=== PATIENT | male | born 1995 | race Two or more races ===

== ENCOUNTER 2017-03-04 06:30 | Emergency (ER) | payer BC, MEDICAID ==
[~2017-03-04] VITALS: Ht 172.7 cm; Wt 94.3 kg
[2017-03-04 06:40] VITALS: BP 143/81
== END 2017-03-04 07:34 | disposition home or self-care (01) ==
LOC: ER 06:30
DX: K05.10 Chronic gingivitis, plaque induced (principal)

== ENCOUNTER 2025-06-12 20:15 | Inpatient (IN) | payer MEDICAID ==
[~2025-06-12] VITALS: Ht 172.7 cm; Wt 107.0 kg
--- NOTE | 2025-06-12 20:59 | ED.PDOC ---
Musculoskeletal HPI Comments 30-year-old male presents to the ED for chief complaint of right sided arm swelling associated with some tenderness. 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 Patient usually injects Mondays and weekly however states his last injection was 5 days ago. He did not inject 3 days ago as he noticed that the swelling of his was abnormal up to him. He reports the pain is more of a pinching sensation to the injection sites. Past medical history: Denies Past surgical history: Right clavicle and left leg. Allergies: None known allergies. bull: RUE PAIN SWELLING tachy, nv intact. HPI: Poor Historian. REVIEW OF SYSTEMS: CONSTITUTIONAL: Denies acute: fever, diaphoresis, chills, generalized weakness. HEAD: Denies acute: headache, photophobia Eyes: Denies acute: Double vision, vision loss, eye pain, eye discharge. EARS: Denies acute: tinnitus, hearing loss, ear discharge, ear pain, THROAT: Denies acute: sore throat, swelling, difficulty swallowing , pain with swallowing, change in voice. NECK: Denies acute: neck pain, neck swelling, stiff neck. HEART: Denies acute : chest pain, palpitations, LUNGS: Denies acute: SOB, wheezing, cough, hemoptysis ABDOMEN: Denies acute: abdominal pain, Nausea, Vomiting, diarrhea, melena , hematemesis, hematochezia SKIN: Denies acute: rash, redness, lesions, itchiness. EXTREMITIES: Denies acute: calf pain, numbness, tingling, weakness, Denies acute: Low back pain. Neuro: Denies acute: focal neurological deficit, motor or sensory focal neurological deficit, tremors, seizure like activity, confusion, dizziness, change in mental status, loss of bowel or bladder function, cauda equina like symptoms. : Denies acute: dysuria, hematuria, flank pain, increase in urinary frequency. PSYCH: Denies acute: hallucination, suicidal ideation, homicidal ideation. PHYSICAL EXAM: General: ---mild-----acute distress, awake and alert. Head: normocephalic, atraumatic. No raccoon's eyes, no ruiz sign. Neck: supple, trachea is midline, no swelling. Throat: Normal phonation. Eyes:, no erythema, no purulent discharge, no proptosis, no icterus. Heart: regular tachy, no significant murmur appreciated. Lungs: no apparent respiratory distress, Able to speak in full sentences. No wheezing, no rhonchi, no crackles. No stridors Clear to auscultation bilaterally. Abdomen: non tender to palpation, non distended, soft, no guarding, no rebound, + bowel sounds. Neuro: Awake, Alert, oriented to name, self, situation, follows commands GCS=15. Speech is normal. Skin: no petechia, no purpura, no cyanosis, non-pale, not jaundice. Lower extremities: --no - Pitting edema no deformity, no focal swelling, no calf TTP. Makes eye contact. moves all four extremities. Face: no apparent facial droop. She area of complaint: Right upper extremity: This is neurovascularly intact in the affected extremity. Pedal pulses palpable. Sensory and motor are present. Evaluation of the area of complaint is where he injected himself in the triceps there is some noted swelling and some generalized erythema but no concern for compartment syndrome yet. ED COURSE: DISCLAIMER: This medical document was created using an electronic medical record system with voice recognition software and computerized dictation system. Although this document has been carefully reviewed, there might still be some phonetic and typographical errors. Occasional wrong-word or "sound-alike" substitutions may have occurred due to the inherent limitations of voice recognition software. These areas are purely typographical due to imperfections of the software programs and do not reflect any compromise in the patient's medical care. Please read the chart carefully and recognize, using context, where these substitutions have occurred. Chief Complaint: Upper Extremity Time Seen by MD: 20:46 Primary Care Provider: NONE Reviewed Notes: Medications, Allergies Allergies: Coded Allergies: NO KNOWN ALLERGIES (Unverified , 03/04/17) Information Source: Patient Mode of Arrival: Ambulatory Location: Right Extremity Location: Arm Was a procedure done? Was a procedure done?: No Differential Diagnosis EXT Differential Diagnosis: Deep Vein Thrombosis, Compartment Syndrome, Sprain, Gout X-Ray, Labs, Meds, VS Vital Signs Date Time Temp Pulse Resp B/P (MAP) Pulse Ox O2 Delivery O2 Flow Rate FiO2 06/13/25 00:49 98.6 54 18 135/91 (106) 100 98.6 06/12/25 22:05 99.0 77 18 120/61 (80) 98 99.0 06/12/25 21:09 99.1 100 19 166/60 (95) 98 99.1 06/12/25 21:09 100 19 98 Room Air* 0 21 06/12/25 20:20 99.1 100 19 166/60 98 99.1 Lab Test 06/12/25 22:25 06/12/25 20:50 Range/Units Urine Color Light-yellow Yellow Urine Clarity Clear Clear Urine pH 6.5 5.0-9.0 Urine Specific [place] 1.042 H 1.001-1.035 Urine Protein Trace H Negative Urine Ketones Negative Negative Urine Blood Negative Negative /uL Urine Nitrite Negative Negative Urine Bilirubin Negative Negative Urine Urobilinogen Normal Negative mg/dL Urine Leukocyte Esterase Negative Negative /uL Urine RBC 1 0 - 3 /hpf Urine Microscopic WBC 1 0-3 /HPF Urine Squamous Epithelial Cells None seen <5 /hpf Urine Bacteria None seen None Seen /hpf Urine Glucose Normal Normal mg/dL White Blood Count 8.0 4.4-10.8 10^3/uL Red Blood Count 4.81 4.5-5.90 10^6/uL Hemoglobin 14.2 13.5-17.5 g/dL Hematocrit 42.2 41.0-53.0 % Mean Corpuscular Volume 87.7 80.0-100.0 fL Mean Corpuscular Hemoglobin 29.6 28.0-32.0 pg Mean Corpuscular Hemoglobin Concent 33.7 32.0-36.0 g/dL Red Cell Distribution Width 14.8 H 11.8-14.3 % Platelet Count 527 H 140-450 10^3/uL Mean Platelet Volume 7.5 6.9-10.8 fL Neutrophils (%) (Auto) 73.7 37.0-80.0 % Lymphocytes (%) (Auto) 17.1 10.0-50.0 % Monocytes (%) (Auto) 7.8 0.0-12.0 % Eosinophils (%) (Auto) 0.6 0.0-7.0 % Basophils (%) (Auto) 0.8 0.0-2.0 % Neutrophils # (Auto) 5.9 1.6-8.6 10 ^3/uL Lymphocytes # (Auto) 1.4 0.4-5.4 10 ^3/uL Monocytes # (Auto) 0.6 0-1.3 10 ^3/uL Eosinophils # (Auto) 0.1 0-0.8 10 ^3/uL Basophils # (Auto) 0.1 0-0.2 10 ^3/uL Nucleated Red Blood Cells 0.1 % Sodium Level 141 136-145 mmol/L Potassium Level 4.3 3.5-5.1 mmol/L Chloride Level 106 98-107 mmol/L Carbon Dioxide Level 28 20-31 mmol/L Anion Gap 7 5-15 Blood Urea Nitrogen 10 9-23 mg/dL Creatinine 1.96 H 0.700-1.30 mg/dL Glomerular Filtration Rate Calc 46 >90 mL/min BUN/Creatinine Ratio 5.1 L 10.0-20.0 Serum Glucose 72 L 74-106 mg/dL Lactic Acid Level 1.2 0.4-2.0 mmol/L Calcium Level 9.0 8.7-10.4 mg/dL Magnesium Level 1.8 1.6-2.6 mg/dL Total Bilirubin 0.5 0.2-1.0 mg/dL Aspartate Amino Transferase (AST) 76 H 13-40 U/L Alanine Aminotransferase (ALT) 47 H 7-40 U/L Alkaline Phosphatase 52 46-116 U/L C-Reactive Protein High Sensitivity 1.33 H <1.0 mg/dL Total Protein 6.8 5.7-8.2 g/dL Albumin 4.1 3.2-4.8 g/dL Current Medications Medications (Trade) Dose Ordered Sig/[place] Route Start Time Stop Time Status Last Admin Clindamycin Phosphate 50 ml @ 50 mls/hr ONCE ONCE IV 06/12/25 21:30 06/12/25 22:29 DC 06/12/25 22:08 Time of 1ST Reevaluation: 20:55 Reevaluation 1ST: Unchanged Patient Education/Counseling: Diagnosis, Treatment Family Education/Counseling: No Family Present Departure 1 Departure Time of Disposition: 01:24 Impression: Primary Impression: Cellulitis of right upper extremity Disposition: ADMITTED INPATIENT Admit to: Tele Condition: Guarded Discharged With: Self Critical Care Note Critical Care Time?: No I personally scribed for LILLY SEVILLA DO ([email or web address]) on 06/12/25 at 20:59. Electronically submitted by Summer Becerra ([facility]). LILLY SEVILLA DO Jun 12, 2025 20:59
[2025-06-12 21:09] VITALS: PULSE 100; RESP 19; O2SAT 98
[2025-06-12 21:18] LABS: Mean Corpuscular Volume 87.7 fL (80.0-100.0)
[2025-06-12 21:20] LABS: Hematocrit 42.2 % (41.0-53.0); Hemoglobin 14.2 g/dL (13.5-17.5); Mean Corpuscular Hemoglobin 29.6 pg (28.0-32.0); Nucleated Red Blood Cells % 0.1 %
[2025-06-12 21:33] LABS: Albumin 4.1 g/dL (3.2-4.8); Alkaline Phosphatase 52 U/L (46-116); Anion Gap 7 (5-15); BUN/Creatinine Ratio 5.1 (10.0-20.0); Bilirubin, Total 0.5 mg/dL (0.2-1.0); Blood Urea Nitrogen 10 mg/dL (9-23); Calcium 9.0 mg/dL (8.7-10.4); Carbon Dioxide 28 mmol/L (20-31); Chloride 106 mmol/L (98-107); Magnesium 1.8 mg/dL (1.6-2.6); Potassium 4.3 mmol/L (3.5-5.1); Sodium 141 mmol/L (136-145); Total Protein 6.8 g/dL (5.7-8.2)
[2025-06-12 21:45] LABS: Alanine Aminotransferase 47 U/L (7-40); Glucose 72 mg/dL (74-106)
[2025-06-12] MEDS: CLINDAMYCIN 600MG IV 50 ML IV ONE (22:08)
[2025-06-12] MEDS: IOHEXOL 300 MG/ML 100ML BOTTLE IJ ONE (22:11)
[2025-06-12 22:47] LABS: Urine Protein, UAD TRACE (Negative)
--- NOTE | 2025-06-12 23:26 | DVH ---
INDICATION: r arm swelling pain COMPARISON: None TECHNIQUE: CT of the right upper extremity was performed with contrast. Volume transverse images were obtained and reconstructed in multiple planes using bone and soft tissue algorithms. Radiation Dose Information: CT Dose: CTDI volume is 34.06 mGy. Dose-length product is 1613.63 mGy*cm Contrast: 100 cc Omnipaque 350. FINDINGS: Generalized soft tissue swelling throughout the right arm. No rim enhancing fluid collections. No soft tissue gas. No fracture or malalignment. No erosive bony changes. IMPRESSION: No clear cause for swelling. All CT scans at this medical facility are performed using dose modulation techniques as appropriate to a performed exam including the following: Automated exposure control was utilized; adjustment of the MA and/or KV according to patient size; and use of iterative reconstruction technique.
--- NOTE | 2025-06-13 03:08 | DVHHP2 ---
History of Present Illness History of Present Illness 30-year-old male with no known past medical history who presented with right upper extremity swelling, erythema, and pain. 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 His last injection was five days prior to presentation. Three days before admission, he noticed progressive swelling, redness, and pain at the right arm injection site, prompting him to seek medical care. He denies fever, chills, numbness, weakness, drainage, or trauma other than injections. No history of similar episodes. In the ED, he was afebrile, mil dly tachycardic initially (HR ~100) and mildly hypertensive, both of which improved without intervention. Initial labs showed elevated inflammatory markers and acute kidney injury. CT of the right upper extremity demonstrated diffuse soft tissue swelling without abscess or gas. He was admitted for IV antibiotics and IV fluids. 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, denies tobacco use, denies alcohol use, denies recreational or IV drug use, endorses non-prescribed anabolic steroid injections, lives independently ROS: Negative except as per HPI Review of Systems Allergies: Coded Allergies: NO KNOWN ALLERGIES (Unverified , 03/04/17) Medications Current Medications Medications Dose Ordered Sig/[place] Route Start Time Stop Time Status Last Admin Dose Admin Sodium Chloride 1,000 ml @ 60 mls/hr [id number] IV 06/13/25 03:15 UNV Acetaminophen 650 mg Q6HP PRN PO 06/13/25 03:15 UNV Exam Vital Signs Vital Signs Date Time Temp Pulse Resp B/P (MAP) Pulse Ox O2 Delivery O2 Flow Rate FiO2 06/13/25 00:49 98.6 54 18 135/91 (106) 100 98.6 06/12/25 21:09 Room Air* 0 21 Exam General: Awake, alert, no acute distress Vitals: Afebrile, HR ~100 improving, BP mildly elevated on admission, now stable, SpO? normal on room air HEENT: Normocephalic, atraumatic Cardiovascular: Regular rate and rhythm, no murmurs Respiratory: Clear to auscultation bilaterally Abdomen: Soft, non-tender, non-distended Extremities: Right upper arm with diffuse erythema, warmth, swelling, and tenderness over injection site, no fluctuance, no crepitus, no drainage, full range of motion preserved, distal pulses intact Neuro: Alert and oriented, no focal deficits Skin: No rash elsewhere Labs/Xrays Labs Test 06/12/25 22:25 06/12/25 20:50 Range/Units Urine Color Light-yellow Yellow Urine Clarity Clear Clear Urine pH 6.5 5.0-9.0 Urine Specific [place] 1.042 H 1.001-1.035 Urine Protein Trace H Negative Urine Ketones Negative Negative Urine Blood Negative Negative /uL Urine Nitrite Negative Negative Urine Bilirubin Negative Negative Urine Urobilinogen Normal Negative mg/dL Urine Leukocyte Esterase Negative Negative /uL Urine RBC 1 0 - 3 /hpf Urine Microscopic WBC 1 0-3 /HPF Urine Squamous Epithelial Cells None seen <5 /hpf Urine Bacteria None seen None Seen /hpf Urine Glucose Normal Normal mg/dL White Blood Count 8.0 4.4-10.8 10^3/uL Red Blood Count 4.81 4.5-5.90 10^6/uL Hemoglobin 14.2 13.5-17.5 g/dL Hematocrit 42.2 41.0-53.0 % Mean Corpuscular Volume 87.7 80.0-100.0 fL Mean Corpuscular Hemoglobin 29.6 28.0-32.0 pg Mean Corpuscular Hemoglobin Concent 33.7 32.0-36.0 g/dL Red Cell Distribution Width 14.8 H 11.8-14.3 % Platelet Count 527 H 140-450 10^3/uL Mean Platelet Volume 7.5 6.9-10.8 fL Neutrophils (%) (Auto) 73.7 37.0-80.0 % Lymphocytes (%) (Auto) 17.1 10.0-50.0 % Monocytes (%) (Auto) 7.8 0.0-12.0 % Eosinophils (%) (Auto) 0.6 0.0-7.0 % Basophils (%) (Auto) 0.8 0.0-2.0 % Neutrophils # (Auto) 5.9 1.6-8.6 10 ^3/uL Lymphocytes # (Auto) 1.4 0.4-5.4 10 ^3/uL Monocytes # (Auto) 0.6 0-1.3 10 ^3/uL Eosinophils # (Auto) 0.1 0-0.8 10 ^3/uL Basophils # (Auto) 0.1 0-0.2 10 ^3/uL Nucleated Red Blood Cells 0.1 % Sodium Level 141 136-145 mmol/L Potassium Level 4.3 3.5-5.1 mmol/L Chloride Level 106 98-107 mmol/L Carbon Dioxide Level 28 20-31 mmol/L Anion Gap 7 5-15 Blood Urea Nitrogen 10 9-23 mg/dL Creatinine 1.96 H 0.700-1.30 mg/dL Glomerular Filtration Rate Calc 46 >90 mL/min BUN/Creatinine Ratio 5.1 L 10.0-20.0 Serum Glucose 72 L 74-106 mg/dL Lactic Acid Level 1.2 0.4-2.0 mmol/L Calcium Level 9.0 8.7-10.4 mg/dL Magnesium Level 1.8 1.6-2.6 mg/dL Total Bilirubin 0.5 0.2-1.0 mg/dL Aspartate Amino Transferase (AST) 76 H 13-40 U/L Alanine Aminotransferase (ALT) 47 H 7-40 U/L Alkaline Phosphatase 52 46-116 U/L C-Reactive Protein High Sensitivity 1.33 H <1.0 mg/dL Total Protein 6.8 5.7-8.2 g/dL Albumin 4.1 3.2-4.8 g/dL SEPSIS Sepsis Screen Date sepsis recognized/suspect: Jun 12, 2025 Time Sepsis recognized/suspect: 2108 Recent Procedure: No On Antibiotic Therapy: No Respiratory Rate >20: No Heart Rate >90: Yes Temp<36 C (96.8 F) or >38.3 C: No SBP <90 or MAP <65 mmHG: No New Acute Mental Status Change: No Is the patient on CPAP, BIPAP,: No Physician Orders Zinc Plating Machine Operator (06/12/25 ) Electrocardigram (06/12/25 20:52) Blood Culture (06/12/25 20:52) Rt Upper Extremity With Cont (06/12/25 20:52) Admit (06/13/25 03:03) Code Status (06/13/25 03:03) Vital Signs .PER UNIT PROTOCOL (06/13/25 03:03) Review Orders With Adm. (06/13/25 03:03) Regular Diet (06/13/25 Breakfast) Sodium Chloride 0.9% (06/13/25 03:15) Acetaminophen Tablet (Tylenol Tablet) (06/13/25 03:15) Notify Md Of Changes From Base (06/13/25 03:03) Advance Directive (06/13/25 03:03) Patient Condition (06/13/25 03:03) Allergies (06/13/25 03:03) Oxygen By Nasal Cannula (06/13/25 03:03) Stat Ekg For Chest Pain (06/13/25 03:03) Notify Md Of Changes From Base (06/13/25 03:03) Career Services Director For 24 Hours (06/13/25 03:03) Emergency Dysrhythmia Protocol (06/13/25 03:03) Rhythm Strips Once Every Shift (06/13/25 03:03) Vital Signs Date Time Temp Pulse Resp B/P (MAP) Pulse Ox O2 Delivery O2 Flow Rate FiO2 06/13/25 00:49 98.6 54 18 135/91 (106) 100 98.6 06/12/25 22:05 99.0 77 18 120/61 (80) 98 99.0 06/12/25 21:09 99.1 100 19 166/60 (95) 98 99.1 06/12/25 21:09 100 19 98 Room Air* 0 21 06/12/25 20:20 99.1 100 19 166/60 98 99.1 Laboratory Tests Test 06/12/25 20:50 Lactic Acid Level 1.2 mmol/L (0.4-2.0) White Blood Count 8.0 10^3/uL (4.4-10.8) Medications Medications Dose Ordered Sig/[place] Route Start Time Stop Time Status Last Admin Dose Admin Clindamycin Phosphate 50 ml @ 50 mls/hr ONCE ONCE IV 06/12/25 21:30 06/12/25 22:29 DC 06/12/25 22:08 50 MLS/HR Assessment/Plan Assessment/Plan Right upper extremity cellulitis Likely secondary to non-sterile anabolic steroid injection; CT without abscess or necrotizing infection Start IV clindamycin Monitor for progression of erythema, pain, or development of abscess Blood cultures obtained, follow results Elevate affected extremity Avoid further injections, nutrition counselor on risks of anabolic steroid use Acute kidney injury due to VMN Likely the setting of inflammation and possible dehydration IV fluids Monitor creatinine and urine output Avoid nephrotoxic agents Anabolic steroid use Non-prescribed injectable testosterone/trenbolone Director Selection And Administration on cessation Educate on infection, renal, hepatic, and cardiovascular risks Case discussed with Dr Gongora Full code Plan discussed with: Patient, Other (rn) My Orders Orders - ONOFRE SEPULVEDA Procedure Category Date Status Time Admit ADMIT 06/13/25 Transmitted 03:03 Code Status CODE 06/13/25 Transmitted 03:03 Vital Signs [facility] 06/13/25 In Process 03:03 Review Orders With [facility] 06/13/25 In Process Adm.Md 03:03 Regular Diet DIET 06/13/25 Transmitted Breakfast Sodium Chloride 0.9% PHA 06/13/25 Logged 03:15 Acetaminophen Tablet [facility] 06/13/25 Logged (Tylenol Tablet) 03:15 Notify Md Of Changes [facility] 06/13/25 In Process From Base 03:03 Advance Directive [facility] 06/13/25 In Process 03:03 Patient Condition ORDERS 06/13/25 Transmitted 03:03 Allergies [facility] 06/13/25 In Process 03:03 Oxygen By Nasal RT 06/13/25 Transmitted Cannula 03:03 Stat Ekg For Chest [facility] 06/13/25 In Process Pain 03:03 Notify Md Of Changes [facility] 06/13/25 In Process From Base 03:03 Career Services Director For [facility] 06/13/25 In Process 24 Hours 03:03 Emergency Dysrhythmia [facility] 06/13/25 In Process Protocol 03:03 Rhythm Strips Once [facility] 06/13/25 In Process Every Shift 03:03 Date of Service: Jun 13, 2025 Billing Provider: SAMANTA GONGORA MD Common Visit Codes: [id number] INP/OBS CARE (HIGH) Secondary Visit Codes: [id number] CARE PLAN 30 MINUTES ONOFRE SEPULVEDA Jun 13, 2025 03:08
[2025-06-13] MEDS ORDERED: ACETAMINOPHEN 325 MG TAB PO PRN (03:15)
[2025-06-13] MEDS: SODIUM CHLORIDE 0.9% 1,000 ML IV SCH (03:15)
[2025-06-13 06:02] LABS: Hematocrit 41.7 % (41.0-53.0); Hemoglobin 14.1 g/dL (13.5-17.5); Mean Corpuscular Hemoglobin 29.5 pg (28.0-32.0); Mean Corpuscular Volume 87.5 fL (80.0-100.0); Nucleated Red Blood Cells % 0.1 %
[2025-06-13] MEDS: CLINDAMYCIN 600MG IV 50 ML IV SCH (06:10)
[2025-06-13 06:22] LABS: Albumin 3.9 g/dL (3.2-4.8); Alkaline Phosphatase 56 U/L (46-116); BUN/Creatinine Ratio 6.4 (10.0-20.0); Bilirubin, Total 0.4 mg/dL (0.2-1.0); Blood Urea Nitrogen 10 mg/dL (9-23); Calcium 8.8 mg/dL (8.7-10.4); Carbon Dioxide 29 mmol/L (20-31); Total Protein 6.5 g/dL (5.7-8.2)
[2025-06-13 06:26] LABS: Alanine Aminotransferase 46 U/L (7-40); Glucose 70 mg/dL (74-106)
[2025-06-13 06:43] LABS: Anion Gap 8 (5-15); Chloride 106 mmol/L (98-107); Potassium 3.9 mmol/L (3.5-5.1); Sodium 143 mmol/L (136-145)
[2025-06-13 09:00] VITALS: BP 140/73; PULSE 68; RESP 14; TEMP 98; O2SAT 97
[2025-06-13 12:40] VITALS: BP 109/53; PULSE 70; RESP 16; TEMP 98.2; O2SAT 96
[2025-06-13 16:45] VITALS: BP 135/59; PULSE 80; RESP 16; TEMP 98.1; O2SAT 95
--- NOTE | 2025-06-13 17:21 | DVH ---
Right Upper Extremity Venous Duplex Date: 06/13/2025 CLINICAL HISTORY: cellulitis COMPARISON: None FINDINGS: Duplex Doppler evaluation of the venous system of the right lower neck and upper extremity including color Doppler and spectral/pulsed waveform analysis was performed. The internal jugular vein demonstrates appropriate compressibility and waveform variability. The subclavian vein is patent on color Doppler evaluation without intraluminal thrombus and demonstrates waveform variability. The visualized portion of the brachiocephalic vein is patent on color Doppler evaluation without intraluminal thrombus and demonstrates waveform variability. The axillary vein demonstrates appropriate compressibility and waveform variability. The brachial veins demonstrate appropriate compressibility and patency on Doppler evaluation. The basilic vein demonstrates appropriate compressibility and patency on Doppler evaluation. The cephalic vein demonstrates appropriate compressibility and patency on Doppler evaluation. IMPRESSION: 1. No venous thrombus identified in the right upper extremity vessels evaluated above. 2. If clinical concern/symptoms persist or worsen, short-interval follow-up study is suggested.
[2025-06-13] MEDS: HYDROcodone-ACET 5/325MG TAB PO PRN (22:36)
[2025-06-13 23:00] VITALS: BP 118/69; PULSE 79; RESP 19; TEMP 98; O2SAT 94
[2025-06-14] VITALS (8 sets, daily range): BP systolic 105–134; BP diastolic 51–82; PULSE 63–87; RESP 18–20; TEMP 97.9–98.4; O2SAT 95–99
--- NOTE | 2025-06-14 12:04 | DVHPN2 ---
Subjective The patient seen and examined at bedside. Feel better but arm still swollen a little bit. US negative for DVT. Reviewed: Care Plan, H&P, Labs, Medications, Previous Orders, Radiology Changes from previous H/P or p: No Changes Objective Vitals Vital Signs Date Time Temp Pulse Resp B/P (MAP) Pulse Ox O2 Delivery O2 Flow Rate FiO2 06/14/25 09:00 97.9 77 18 105/76 (86) 96 97.9 06/14/25 08:00 Room Air* 0 21 Intake/Output Intake and Output 06/14/25 07:00 Intake Total 1600 ml Balance 1600 ml Intake Oral 1450 ml IV Total 150 ml # Voids 4 General Appearance: Alert, Oriented X3, Cooperative, No acute distress HEENT: Atraumatic, PERRLA, EOMI, Mucous membr. moist/pink Neck: Supple Lungs: Clear to auscultation, Normal air movement Cardiovascular: Regular rate, Normal S1, Normal S2, No murmurs, Gallops, Rubs Abdomen: Normal bowel sounds, Soft, No tenderness Neuro: Cranial nerves 3-12 NL Psych/Mental Status: Mental status NL Medications Current Medications Medications Dose Ordered Sig/[place] Route Start Time Stop Time Status Last Admin Dose Admin Sodium Chloride 1,000 ml @ 60 mls/hr [id number] IV 06/13/25 03:15 06/13/25 22:25 60 MLS/HR Acetaminophen 650 mg Q6HP PRN PO 06/13/25 03:15 Clindamycin Phosphate 50 ml @ 50 mls/hr Q8HR IV 06/13/25 06:00 06/14/25 05:13 50 MLS/HR Acetaminophen/ Hydrocodone Bitart 1 tab [id number] PRN PO 06/13/25 15:30 06/13/25 22:36 1 TAB Laboratory Results Laboratory Tests 06/13/25 05:40 Urinalysis Test 06/12/25 22:25 Urine Color Light-yellow (Yellow) Urine Clarity Clear (Clear) Urine pH 6.5 (5.0-9.0) Urine Specific [place] 1.042 (1.001-1.035) Urine Protein Trace (Negative) H Urine Ketones Negative (Negative) Urine Blood Negative /uL (Negative) Urine Nitrite Negative (Negative) Urine Bilirubin Negative (Negative) Urine Urobilinogen Normal mg/dL (Negative) Urine Leukocyte Esterase Negative /uL (Negative) Urine RBC 1 /hpf (0 - 3) Urine Microscopic WBC 1 /HPF (0-3) Urine Squamous Epithelial Cells None seen /hpf (<5) Urine Bacteria None seen /hpf (None Seen) Urine Glucose Normal mg/dL (Normal) Microbiology Microbiology Date/Time Source Procedure Growth Status 06/12/25 21:03 Blood Blood Culture - Preliminary NO GROWTH AFTER 24 HOURS OF INCUBATION. Resulted Labs and/or images reviewed: Labs reviewed by me Assessment/Plan Assessment/Plan Right upper extremity cellulitis Likely secondary to non-sterile anabolic steroid injection; CT without abscess or necrotizing infection. US UE show no DVT Start IV clindamycin Monitor for progression of erythema, pain, or development of abscess Blood cultures obtained, follow results Elevate affected extremity Avoid further injections, professor of counseling on risks of anabolic steroid use Acute kidney injury due to VMN Likely the setting of inflammation and possible dehydration IV fluids Monitor creatinine and urine output Avoid nephrotoxic agents Anabolic steroid use Non-prescribed injectable testosterone/trenbolone Public Policy Manager on cessation Educate on infection, renal, hepatic, and cardiovascular risks Discharge planing in am. Plan discussed with: Patient My Orders Orders - JACOBO ROSA MD Procedure Category Date Status Time Hydrocodone-Acet PHA 06/13/25 In Process 5/325mg Tab ([place] 15:30 Rt Upper Dvt US 06/13/25 Resulted 16:22 Date of Service: Jun 14, 2025 Billing Provider: JACOBO ROSA MD Common Visit Codes: [id number] INP/OBS CARE(HIGH) JACOBO ROSA MD Jun 14, 2025 12:04
[2025-06-15 00:38] VITALS: BP 133/66; PULSE 68; RESP 17; TEMP 98.3; O2SAT 98
[2025-06-15 05:00] VITALS: BP 126/81; PULSE 68; RESP 18; TEMP 98.2; O2SAT 99
[2025-06-15 09:00] VITALS: BP 114/65; PULSE 79; RESP 18; TEMP 98; O2SAT 97
--- NOTE | 2025-06-15 11:46 | DVHDS2 ---
Discharge Summary Date of Admission Jun 13, 2025 at 03:03 Date of Discharge: Jun 15, 2025 Admitting Diagnosis Right upper extremity cellulitis Likely secondary to non-sterile anabolic steroid injection; CT without abscess or necrotizing infection. Acute kidney injury due to VMN Anabolic steroid use Labs/Diagnostic Data: Laboratory Results Test 06/13/25 05:40 06/12/25 22:25 06/12/25 20:50 White Blood Count 7.1 10^3/uL (4.4-10.8) Red Blood Count 4.77 10^6/uL (4.5-5.90) Hemoglobin 14.1 g/dL (13.5-17.5) Hematocrit 41.7 % (41.0-53.0) Mean Corpuscular Volume 87.5 fL (80.0-100.0) Mean Corpuscular Hemoglobin 29.5 pg (28.0-32.0) Mean Corpuscular Hemoglobin Concent 33.7 g/dL (32.0-36.0) Red Cell Distribution Width 14.7 % (11.8-14.3) Platelet Count 519 10^3/uL (140-450) Mean Platelet Volume 7.5 fL (6.9-10.8) Neutrophils (%) (Auto) 61.4 % (37.0-80.0) Lymphocytes (%) (Auto) 26.6 % (10.0-50.0) Monocytes (%) (Auto) 9.6 % (0.0-12.0) Eosinophils (%) (Auto) 1.5 % (0.0-7.0) Basophils (%) (Auto) 0.9 % (0.0-2.0) Neutrophils # (Auto) 4.4 10 ^3/uL (1.6-8.6) Lymphocytes # (Auto) 1.9 10 ^3/uL (0.4-5.4) Monocytes # (Auto) 0.7 10 ^3/uL (0-1.3) Eosinophils # (Auto) 0.1 10 ^3/uL (0-0.8) Basophils # (Auto) 0.1 10 ^3/uL (0-0.2) Nucleated Red Blood Cells 0.1 % Sodium Level 143 mmol/L (136-145) Potassium Level 3.9 mmol/L (3.5-5.1) Chloride Level 106 mmol/L (98-107) Carbon Dioxide Level 29 mmol/L (20-31) Anion Gap 8 (5-15) Blood Urea Nitrogen 10 mg/dL (9-23) Creatinine 1.56 mg/dL (0.700-1.30) Glomerular Filtration Rate Calc 61 mL/min (>90) BUN/Creatinine Ratio 6.4 (10.0-20.0) Serum Glucose 70 mg/dL (74-106) Calcium Level 8.8 mg/dL (8.7-10.4) Total Bilirubin 0.4 mg/dL (0.2-1.0) Aspartate Amino Transferase (AST) 75 U/L (13-40) Alanine Aminotransferase (ALT) 46 U/L (7-40) Alkaline Phosphatase 56 U/L (46-116) Creatine Kinase 3304 U/L (46-171) Total Protein 6.5 g/dL (5.7-8.2) Albumin 3.9 g/dL (3.2-4.8) Urine Color Light-yellow (Yellow) Urine Clarity Clear (Clear) Urine pH 6.5 (5.0-9.0) Urine Specific Reserve 1.042 (1.001-1.035) Urine Protein Trace (Negative) Urine Ketones Negative (Negative) Urine Blood Negative /uL (Negative) Urine Nitrite Negative (Negative) Urine Bilirubin Negative (Negative) Urine Urobilinogen Normal mg/dL (Negative) Urine Leukocyte Esterase Negative /uL (Negative) Urine RBC 1 /hpf (0 - 3) Urine Microscopic WBC 1 /HPF (0-3) Urine Squamous Epithelial Cells None seen /hpf (<5) Urine Bacteria None seen /hpf (None Seen) Urine Glucose Normal mg/dL (Normal) Lactic Acid Level 1.2 mmol/L (0.4-2.0) Magnesium Level 1.8 mg/dL (1.6-2.6) C-Reactive Protein High Sensitivity 1.33 mg/dL (<1.0) Other Laboratory Tests 06/13/25 05:40 Brief Hx & Hospital Course: This is a 30 years old male with no known past medical history come into emergency department because of right upper extremity swelling, arrhythmia and pain. 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 The patient is usually in checked twice per week on Saturday and approximately for two months. His last injection was five days prior to his presentation. He started noticed some progressive swelling, redness, and pain in the right arm at the injection site. Prompting him to seek for medical care. He denied any fever or chills. He does have some tachycardia and redness of the right upper arm. CT right upper extremity demonstrate diffuse soft tissue swelling without abscess or gas. The ultrasound is negative for acute DVT. The patient was put on IV clindamycin and his cellulitis improved. He was advised to stop using non-prescribed anabolic steroid. Explained to the patient potential risks including infection and also cardiac problem with anabolic steroid. The patient verbally understand. Today I am discharge him home. Advised him to follow up with primary care physician 1-2 weeks. Activity as tolerated. Diet per home diet. Physical exam: HEENT: Normocephalic atraumatic pupils equal react to light and accommodation. Extraocular muscles intact, conjunctiva pink, oropharynx moist, no thrush, no exudate. Lymphatic: No lymphadenopathy Cardiovascular exam: S1, S2 was heard. No murmurs, rubs, gallops Lung: Clear on auscultation bilaterally, no wheeze, rale, rhonchi. GI: Abdominal soft, nondistended, nontenderness, positive bowel sounds. Extremity: No crepitus, cyanosis, edema. Pedal pulses present bilateral. Full range of motion. Skin: Normal turgor, no rash. Psych: Alert, oriented x3. Neurology: No focal deficits, cranial nerve II to XII grossly intact. This medical document was created using an electronic medical record system with [employer] direct computerized dictation system. Although this document has been carefully reviewed, there may still be some phonetic and typographical errors. These areas are purely typographical due to imperfections of the software programs, and do not reflect any compromise in the patient's medical care. Condition at Discharge: Stable Final Diagnosis/Problems List Right upper extremity cellulitis Likely secondary to non-sterile anabolic steroid injection; CT without abscess or necrotizing infection. US UE show no DVT Acute kidney injury due to VMN Anabolic steroid use Discharge Disposition: Home Discharge Instruct/Medications Scheduled Clindamycin Hcl (Clindamycin Hcl), 1 CAP PO TID Discharge Statement: "Patient was advised to return to the ER or call 911 if any headaches, dizziness, shortness of breath, chest pain, abdominal pain, bleeding, fevers, or worsening of medical condition. Patient was counseled about treatment plan, medications, possible side effects, patientverbalized understanding. All questions were answered to the best of my ability. This discharge took greater then 30 minutes in planning, reviewing documentation, counseling the patient, and discussing with other team members." ASSESSMENT ASSESSMENT Assessment Date of Service: Jun 15, 2025 Billing Provider: JACOBO ROSA MD Common Visit Codes: 26268-JBX/OBS DISCH DAY >30min JACOBO ROSA MD Jun 15, 2025 11:46
[2025-06-15] MEDS ORDERED: CLIN1CAP70 PO (11:47)
[2025-06-15 11:52] VITALS: BP 114/65; PULSE 62; RESP 18; TEMP 98; O2SAT 97
[2025-06-15 12:17] VITALS: BP 118/73; PULSE 64; RESP 18; TEMP 98.6; O2SAT 98
== END 2025-06-15 13:15 | disposition home or self-care (01) | DRG 383 ==
LOC: ER 20:15 → OVERFLOW 06-13 03:03 → CENTRAL 06-13 22:19
PROVIDERS: ADMIT Internal Medicine; ATTEND Internal Medicine
DX: L03.113 Cellulitis of right upper limb (principal); N17.0 Acute kidney failure with tubular necrosis; M62.82 Rhabdomyolysis; E86.0 Dehydration; T38.7X5A Adverse effect of androgens and anabolic congeners, initial encounter; Z79.899 Other long term (current) drug therapy; Y92.89 Other specified places as the place of occurrence of the external cause
CPT/HCPCS: 36415; 73201; 80053; 81001; 82550; 83605; 83735; 85025; 86141; 87040; 93971; 96365; G0378; J3490